=== PATIENT | male | born 1950 | race Caucasian/White ===

== ENCOUNTER 2018-09-02 11:15 | Emergency (ER) | payer OTHER ==
[2018-09-02] MEDS ORDERED: DEXAMETHASONE 4 MG/ML VIAL ONE (11:36)
[2018-09-02] MEDS ORDERED: METHYLPREDNISOLONE 125 MG INJ ONE (11:36)
[2018-09-02] MEDS ORDERED: DIPHENHYDRAMINE 50 MG/ML VIAL ONE (11:36)
[2018-09-02] MEDS ORDERED: FAMOTIDINE 20 MG/2 ML VIAL IV ONE (11:36)
[2018-09-02] MEDS ORDERED: NA CHLORIDE 0.9% 1,000 ML ONE (11:37)
[2018-09-02] MEDS ORDERED: ONDANSETRON 4 MG/2 ML VIAL ONE (11:55)
[2018-09-02 12:10] LABS: Absolute Lymphocytes (CBC) 0.7 K/uL (0.7-4.9); Absolute Monocytes 0.3 K/uL (0.1-1.3); Absolute Neutrophil 11.6 K/uL (1.8-8.0); Basophils % 0.2 % (0-1.3); Hematocrit 49.1 % (39.6-49.0); Lymphocytes % 5.2 % (15.3-44.8); MCH 31.6 pg (27.0-35.0); MCV 94.8 fL (80-100); MPV 9.1 fL (7.6-11.3); Monocytes % 2.4 % (3.3-12.3); RBC Red Blood Cell Count 5.18 M/uL (4.33-5.43)
[2018-09-02 12:16] LABS: Protime INR 0.98
--- NOTE | 2018-09-02 12:17 | RAD REPORT ---
EXAM DESCRIPTION: RAD - Chest Single View - 09/02/2018 12:09 pm CLINICAL HISTORY: orthostatic Chest pain. COMPARISON: CHEST PA AND LAT 2 VIEW dated 04/08/2010 FINDINGS: Portable technique limits examination quality. The lungs are grossly clear. The heart is normal in size. No displaced fractures. IMPRESSION: No acute intrathoracic process suspected.
[2018-09-02 12:26] LABS: ALT/SGPT 61 U/L (12-78); AST/SGOT 29 U/L (15-37); Albumin 4.2 g/dL (3.4-5.0); Alkaline Phosphatase 56 U/L (45-117); BUN Blood Urea Nitrogen 19 mg/dL (7-18); Bicarbonate 22 mmol/L (21-32); Bilirubin Direct 0.2 mg/dL (0-0.2); Bilirubin Total 0.5 mg/dL (0.2-1.0); Glucose Level 217 mg/dL (74-106); Magnesium 1.9 mg/dL (1.8-2.4); NT PRO-BNP 33 pg/mL (<125); Potassium 4.9 mmol/L (3.5-5.1); Protein, Total 7.9 g/dL (6.4-8.2); Sodium Level 139 mmol/L (136-145); Troponin (Emerg Dept Use Only) < 0.02 ng/mL (0.0-0.045)
--- NOTE | 2018-09-02 12:39 | EKG ---
Test Date: 2018-09-02 Test Time: 12:07:17 3D Technologist: EDUIN MEASUREMENT RESULTS: Intervals: Rate: 96 MI: 144 QRSD: 86 QT: 358 QTc: 452 [place]: P: 69 MI: 144 QRS: 5 T: 32 INTERPRETIVE STATEMENTS: Normal sinus rhythm Normal ECG No previous ECG available for comparison Electronically Signed On 09-02-18 12:38:42 LACE PINNER by Gamal Vaughn
--- NOTE | 2018-09-02 13:18 | EDPHYS ---
Physician Documentation [facility] Name: William Mann Age: 68 yrs Sex: Male : 1950 Arrival Date: 09/02/2018 Time: 11:17 Bed 17 Private MD: ED Physician Raul Sue HPI: 09/02 11:28 This 68 yrs old Male presents to ER via Unassigned with complaints of danielle Allergic Reaction, Allergy Symptoms. 11:28 The patient presents with difficulty swallowing, diffuse swelling, rash, redness of danielle skin. Onset: The symptoms/episode began/occurred just prior to arrival, this morning. Associated signs and symptoms: Pertinent positives: light headed, nausea, rash, shortness of breath. Possible causes: b 12. At home the patient or guardian has treated the symptoms with Benadryl. Severity of symptoms: At their worst the symptoms were moderate in the emergency department the symptoms are unchanged. The patient has not experienced similar symptoms in the past. Historical: - Allergies: 19:10 No Known Allergies; tw2 - PMHx: 19:10 Diabetes - IDDM; Hypertension; Hyperlipidemia; tw2 - Immunization history:: Adult Immunizations up to date. - Social history:: Smoking status: Patient/guardian denies using tobacco. - Family history:: not pertinent. - Ebola Screening: : Patient denies travel to an Ebola-affected area in the 21 days before illness onset. ROS: 11:29 Constitutional: Negative for fever, chills, and weight loss, Eyes: Negative for injury, danielle pain, redness, and discharge, ENT: Negative for injury, pain, and discharge, Neck: Negative for injury, pain, and swelling, Cardiovascular: Negative for chest pain, palpitations, and edema, Respiratory: Negative for shortness of breath, cough, wheezing, and pleuritic chest pain, Abdomen/GI: Negative for abdominal pain, nausea, vomiting, diarrhea, and constipation, Back: Negative for injury and pain, : Negative for injury, bleeding, discharge, and swelling, MS/Extremity: Negative for injury and deformity, Neuro: Negative for headache, weakness, numbness, tingling, and seizure, Psych: Negative for depression, anxiety, suicide ideation, homicidal ideation, and hallucinations, Allergy/Immunology: Negative for hives, rash, and allergies, Endocrine: Negative for neck swelling, polydipsia, polyuria, polyphagia, and marked weight changes, Hematologic/Lymphatic: Negative for swollen nodes, abnormal bleeding, and unusual bruising. 11:29 Skin: Positive for rash, swelling. Exam: 11:29 Constitutional: This is a well developed, well nourished patient who is awake, alert, danielle and in no acute distress. Head/Face: Normocephalic, atraumatic. Eyes: Pupils equal round and reactive to light, extra-ocular motions intact. Lids and lashes normal. Conjunctiva and sclera are non-icteric and not injected. Cornea within normal limits. Periorbital areas with no swelling, redness, or edema. ENT: Nares patent. No nasal discharge, no septal abnormalities noted. Tympanic membranes are normal and external auditory canals are clear. Oropharynx with no redness, swelling, or masses, exudates, or evidence of obstruction, uvula midline. Mucous membranes moist. Neck: Trachea midline, no thyromegaly or masses palpated, and no cervical lymphadenopathy. Supple, full range of motion without nuchal rigidity, or vertebral point tenderness. No Meningismus. Chest/axilla: Normal chest wall appearance and motion. Nontender with no deformity. No lesions are appreciated. Cardiovascular: Regular rate and rhythm with a normal S1 and S2. No gallops, murmurs, or rubs. Normal PMI, no JVD. No pulse deficits. Respiratory: Lungs have equal breath sounds bilaterally, clear to auscultation and percussion. No rales, rhonchi or wheezes noted. No increased work of breathing, no retractions or nasal flaring. Abdomen/GI: Soft, non-tender, with normal bowel sounds. No distension or tympany. No guarding or rebound. No evidence of tenderness throughout. Back: No spinal tenderness. No costovertebral tenderness. Full range of motion. Male : Normal genitalia with no discharge or lesions. MS/ Extremity: Pulses equal, no cyanosis. Neurovascular intact. Full, normal range of motion. Neuro: Awake and alert, GCS 15, oriented to person, place, time, and situation. Cranial nerves II-XII grossly intact. Motor strength 5/5 in all extremities. Sensory grossly intact. Cerebellar exam normal. Normal gait. Psych: Awake, alert, with orientation to person, place and time. Behavior, mood, and affect are within normal limits. 11:29 Skin: rash a moderate rash is noted, rash can be described as erythematous, and is diffusely located. Vital Signs: 11:25 BP 132 / 78; Pulse 94; Resp 18; Pulse Ox 96% on R/A; tw2 11:57 Temp 97.8(O); tw2 13:35 BP 125 / 71 Standing; Pulse 103; tw2 13:35 BP 137 / 87 Sitting; Pulse 108; tw2 13:36 BP 117 / 66 Supine; Pulse 93; tw2 13:35 no symptoms tw2 MDM: 11:18 Patient medically screened. [facility] 11:31 Data reviewed: vital signs, nurses notes, lab test result(s), EKG, radiologic studies, danielle plain films. 09/02 11:25 Order name: Basic Metabolic Panel; Complete Time: 13:12 tw09/02 11:25 Order name: CBC with Diff tw2 09/02 11:25 Order name: LFT's; Complete Time: 13:12 tw09/02 11:25 Order name: Magnesium; Complete Time: 13:12 tw09/02 11:25 Order name: NT PRO-BNP; Complete Time: 13:12 tw2 09/02 11:25 Order name: PT-INR; Complete Time: 13:12 tw09/02 11:25 Order name: Troponin (emerg Dept Use Only); Complete Time: 13:12 09/02 11:25 Order name: XRAY Chest (1 view); Complete Time: 13:12 09/02 12:18 Order name: CBC Smear Scan EDMS 09/02 11:25 Order name: EKG; Complete Time: 11:26 09/02 11:25 Order name: Cardiac monitoring; Complete Time: 13:44 tw2 09/02 11:25 Order name: EKG - Nurse/Tech; Complete Time: 13:38 09/02 11:25 Order name: IV Saline Lock; Complete Time: 13:38 09/02 11:25 Order name: Labs collected and sent; Complete Time: 13:38 09/02 11:25 Order name: O2 Per Protocol; Complete Time: 13:38 09/02 11:25 Order name: O2 Sat Monitoring; Complete Time: 13:38 09/02 13:13 Order name: PO challenge; Complete Time: 13:30 danielle 09/02 13:13 Order name: Orthostatics; Complete Time: 13:35 danielle Administered Medications: :26 CANCELLED (Duplicate Order): Pepcid 20 mg IVP once tw2 11:42 Drug: Decadron - Dexamethasone 10 mg Route: IVP; Site: right antecubital; tw2 12:25 Follow up: Response: Adverse reaction, Physician notified; Adverse reaction, Physician tw2 notified, pt vomited after administration, medicated as ordered with zofran 11:50 Drug: Zofran 4 mg Route: IVP; Site: right antecubital; tw2 13:37 Follow up: Response: No adverse reaction; Nausea is decreased tw2 11:52 Drug: NS 0.9% 1000 ml Route: IV; Rate: 1 bolus; Site: right antecubital; tw2 13:37 Follow up: Response: No adverse reaction; IV Status: Completed infusion; IV Intake: tw2 1000ml 11:55 CANCELLED (Duplicate Order): Zofran 4 mg IVP once; over 2 minutes tw2 12:20 Drug: Pepcid 40 mg Route: IVP; Site: right antecubital; tw2 13:38 Follow up: Response: No adverse reaction tw2 12:25 Drug: SOLU-Medrol 125 mg Route: IVP; Site: right antecubital; tw2 13:38 Follow up: Response: No adverse reaction tw2 13:30 Not Given (Patient Refused): Benadryl 25 mg IVP once tw2 Point of Care Testing: Blood Glucose: 11:40 Blood Glucose: 204 mg/dL; tw2 Ranges: Critical Glucose Levels:Adult <50 mg/dl or >400 mg/dl <40 mg/dl or >180 mg/dl Disposition: 09/02/18 13:17 Discharged to Home. Impression: Angioneurotic edema, Unspecified adverse effect of drug or medicament - B-12. - Condition is Stable. - Discharge Instructions: Allergies, Adult, Angioedema, Angioedema, [id number]. - Prescriptions for Benadryl 25 mg Oral Capsule - take 1 capsule by ORAL route every 6 hours As needed; 30 tablet. Pepcid 20 mg Oral Tablet - take 1 tablet by ORAL route every 12 hours for 10 days; 20 tablet. Prednisone 20 mg Oral Tablet - take 2 tablet by ORAL route once daily for 5 days; 10 tablet. EpiPen 0.3 mg Injection auto- injector - inject 1 pen by INTRAMUSCULAR route one time Inject into the outer portion of the thigh, through clothing if necessary. Indicated in the emergency treatment of allergic reactions; 1 Cartridge. - Medication Reconciliation Form, Thank You Letter, Antibiotic Education, Prescription Opioid Use form. - Follow up: Private Physician; When: 2 - 3 days; Reason: Recheck today's complaints, Re-evaluation by your physician. - Problem is new. - Symptoms have improved. Signatures: Dispatcher [employer] EDMS Raul Sue MD MD cha Wise, Tara RN RN tw2 Corrections: (The following items were deleted from the chart) 11:26 11:25 Pepcid 20 mg IVP once ordered. tw2 tw2 11:55 11:54 Zofran 4 mg IVP once; over 2 minutes ordered. tw2 tw2 13:45 13:17 09/02/2018 13:17 Discharged to Home. Impression: Angioneurotic edema; Unspecified tw2 adverse effect of drug or medicament - B-12. Condition is Stable. Discharge Instructions: Allergies, Adult, Angioedema, Angioedema, [id number]. Prescriptions for Benadryl 25 mg Oral Capsule - take 1 capsule by ORAL route every 6 hours As needed; 30 tablet, Pepcid 20 mg Oral Tablet - take 1 tablet by ORAL route every 12 hours for 10 days; 20 tablet, Prednisone 20 mg Oral Tablet - take 2 tablet by ORAL route once daily for 5 days; 10 tablet, EpiPen 0.3 mg Injection auto-injector - inject 1 pen by INTRAMUSCULAR route one time Inject into the outer portion of the thigh, through clothing if necessary. Indicated in the emergency treatment of allergic reactions; 1 Cartridge. and Forms are Medication Reconciliation Form, Thank You Letter, Antibiotic Education, Prescription Opioid Use. Follow up: Private Physician; When: 2 - 3 days; Reason: Recheck today's complaints, Re-evaluation by your physician. Problem is new. Symptoms have improved. danielle
--- NOTE | 2018-09-02 13:18 | ER ---
Nurse's Notes [facility] Name: William Mann Age: 68 yrs Sex: Male : 1950 Arrival Date: 09/02/2018 Time: 11:17 Bed 17 Private MD: Diagnosis: Angioneurotic edema;Unspecified adverse effect of drug or [id number] Presentation: 09/02 11:18 Presenting complaint: EMS states: pt wasn't feeling good, went to work and thinks he is tw2 having an allergic reaction to a vitamin he took last night, says the rash started 845 bu then he passed out at work, did not hit his head, +orthostatic, in the 90's/50's we gave 25 iv benadryl and started NS bolus. Transition of care: patient was not received from another setting of care. Onset: The symptoms/episode began/occurred this morning. Anaphylaxis evaluation, the patient reports or I have noted the following symptoms which indicate a significant risk of anaphylaxis: urticaria. Onset of symptoms was September 02, 2018. Risk Assessment: Do you want to hurt yourself or someone else? Patient reports no desire to harm self or others. Initial Sepsis Screen: Does the patient meet any 2 criteria? No. Patient's initial sepsis screen is negative. Does the patient have a suspected source of infection? No. Patient's initial sepsis screen is negative. Care prior to arrival: Medication(s) given: Normal saline infusion, 1000 mL, 25 mg Benadryl IV. 11:18 Method Of Arrival: EMS: [facility] tw2 11:18 Acuity: BRANDT 3 tw2 Triage Assessment: 11:17 General: Appears in no apparent distress. Behavior is calm, cooperative, appropriate tw2 for age. Historical: - Allergies: 19:10 No Known Allergies; tw2 - PMHx: 19:10 Diabetes - IDDM; Hypertension; Hyperlipidemia; tw2 - Immunization history:: Adult Immunizations up to date. - Social history:: Smoking status: Patient/guardian denies using tobacco. - Family history:: not pertinent. - Ebola Screening: : Patient denies travel to an Ebola-affected area in the 21 days before illness onset. Screenin:15 Abuse screen: Denies threats or abuse. Nutritional screening: No deficits noted. tw2 Tuberculosis screening: No symptoms or risk factors identified. Fall Risk None identified. Assessment: 11:30 General: Appears in no apparent distress. Behavior is calm, cooperative, appropriate tw2 for age. Pain: Denies pain. Neuro: Level of Consciousness is awake, alert, obeys commands, Oriented to person, place, time, situation. Cardiovascular: Heart tones S1 S2 Capillary refill < 3 seconds Patient's skin is warm and dry. Respiratory: Airway is patent Respiratory effort is even, unlabored, Respiratory pattern is regular, symmetrical, Breath sounds are clear bilaterally. GI: No signs and/or symptoms were reported involving the gastrointestinal system. : No signs and/or symptoms were reported regarding the genitourinary system. EENT: No signs and/or symptoms were reported regarding the EENT system. Derm: Rash noted that is red, all over. Musculoskeletal: Circulation, motion, and sensation intact. Range of motion: intact in all extremities. 12:30 Reassessment: Patient appears in no apparent distress at this time. Patient and/or tw2 family updated on plan of care and expected duration. Pain level reassessed. Patient is alert, oriented x 3, equal unlabored respirations, skin warm/dry/pink. 13:36 Reassessment: Patient appears in no apparent distress at this time. Patient and/or tw2 family updated on plan of care and expected duration. Pain level reassessed. Patient is alert, oriented x 3, equal unlabored respirations, skin warm/dry/pink. Patient states feeling better. Patient states symptoms have improved. Vital Signs: 11:25 BP 132 / 78; Pulse 94; Resp 18; Pulse Ox 96% on R/A; tw2 11:57 Temp 97.8(O); tw2 13:35 BP 125 / 71 Standing; Pulse 103; tw2 13:35 BP 137 / 87 Sitting; Pulse 108; tw2 13:36 BP 117 / 66 Supine; Pulse 93; tw2 13:35 no symptoms tw2 ED Course: 11:15 Arm band placed on. tw2 11:17 Patient arrived in ED. tw2 11:17 Maintain EMS IV. Dressing intact. Good blood return noted. Site clean \T\ dry. Gauge \T\ tw 2 site: 20 g RIGHT ac. 11:18 Raul Sue MD is Attending Physician. [facility] 11:20 Bed in low position. Call light in reach. Side rails up X2. Adult w/ patient. Cardiac tw2 monitor on. Pulse ox on. NIBP on. Warm blanket given. 11:33 Joya Chery, RN is Primary Nurse. tw2 12:06 X-ray completed. Portable x-ray completed in exam room. Patient tolerated procedure jb2 well. 12:10 XRAY Chest (1 view) In Process Unspecified. EDMS 12:29 EKG done, by obstetrical tech. reviewed by Raul Sue MD. at1 19:09 Triage completed. tw2 19:12 No provider procedures requiring assistance completed. IV discontinued, intact, tw2 bleeding controlled, No redness/swelling at site. Pressure dressing applied. Administered Medications: 11:26 CANCELLED (Duplicate Order): Pepcid 20 mg IVP once tw2 11:42 Drug: Decadron - Dexamethasone 10 mg Route: IVP; Site: right antecubital; tw2 12:25 Follow up: Response: Adverse reaction, Physician notified; Adverse reaction, Physician tw2 notified, pt vomited after administration, medicated as ordered with zofran 11:50 Drug: Zofran 4 mg Route: IVP; Site: right antecubital; tw2 13:37 Follow up: Response: No adverse reaction; Nausea is decreased tw2 11:52 Drug: NS 0.9% 1000 ml Route: IV; Rate: 1 bolus; Site: right antecubital; tw2 13:37 Follow up: Response: No adverse reaction; IV Status: Completed infusion; IV Intake: tw2 1000ml 11:55 CANCELLED (Duplicate Order): Zofran 4 mg IVP once; over 2 minutes tw2 12:20 Drug: Pepcid 40 mg Route: IVP; Site: right antecubital; tw2 13:38 Follow up: Response: No adverse reaction tw2 12:25 Drug: SOLU-Medrol 125 mg Route: IVP; Site: right antecubital; tw2 13:38 Follow up: Response: No adverse reaction tw2 13:30 Not Given (Patient Refused): Benadryl 25 mg IVP once tw2 Point of Care Testing: Blood Glucose: 11:40 Blood Glucose: 204 mg/dL; tw2 Ranges: Intake: 13:37 IV: 1000ml; Total: 1000ml. tw2 Outcome: 13:17 Discharge ordered by MD. santos 13:45 Discharged to home ambulatory, with family, with significant other. tw2 13:45 Condition: stable 13:45 Discharge instructions given to patient, family, significant other, Instructed on discharge instructions, follow up and referral plans. medication usage, Demonstrated understanding of instructions, follow-up care, medications, Prescriptions given X 4. 13:45 Patient left the ED. tw2 Signatures: Dispatcher [employer] EDRaul Parry MD MD cha Buechter, Jesse jb2 Ghislaine Barillas, animal husbandry teacher EKG Tat1 Joya Chery RN RN tw2 Corrections: (The following items were deleted from the chart) 13:39 13:36 BP 150 / 75 Supine; Pulse 98bpm; tw2 tw2
[2018-09-02 14:03] LABS: Platelet Estimate ADEQ; Urine White Blood Cell Casts OK
[2018-09-02 14:04] LABS: Blood Morphology Comment NOT SEEN (NOT SEEN)
== END 2018-09-02 13:45 | disposition home or self-care (01) ==
LOC: ER 11:15
DX: T78.3XXA Angioneurotic edema, initial encounter (principal); T45.2X5A Adverse effect of vitamins, initial encounter; E11.9 Type 2 diabetes mellitus without complications; Z79.4 Long term (current) use of insulin
CPT/HCPCS: 36415; 71045; 80048; 80076; 82962; 83735; 83880; 84484; 85025; 85610; 93005; 96361; 96374; 96375; 99284; J2405; J2930; J7030